=== PATIENT | male | born 1955 | race Caucasian/White ===

== ENCOUNTER 2017-05-07 16:15 | Inpatient (IN) | payer OTHER ==
[~2017-05-07] VITALS: Ht 160 cm; Wt 70.4 kg
[~2017-05-07 16:15] MED LIST: DEXAMETHASONE 4 MG/ML, 1ML ONE; GLYCOPYRROLATE 0.2MG/1ML, 5ML ONE; NEOSTIGMINE 1 MG/ML, 10ML ONE; ONDANSETRON 2MG/ML, 2ML ONE; PROPOFOL 10 MG/ML, 50ML ONE; ROCURONIUM 10MG/ML,5ML ONE
[2017-05-07] MEDS ORDERED: SODIUM CHLORIDE 0.9% 1,000ML IVBOLUS ONE (16:30)
[2017-05-07] MEDS ORDERED: SODIUM CHLORIDE FLUSH 10ML SYR IVF ONE (16:30)
[2017-05-07 16:53] LABS: HEMATOCRIT 49.7 % (39.2-51.8); WHITE BLOOD COUNT 8.3 x10^3/uL (3.4-10)
[2017-05-07] MEDS ORDERED: PLEASE ENTER ALLERGIES MC SCH ×2 (17:00)
[2017-05-07 17:06] LABS: BLOOD UREA NITROGEN 18 mg/dL (7-18)
[2017-05-07] MEDS ORDERED: LIDOCAINE GEL 2%, 5ML ONE (18:48)
[2017-05-07] MEDS ORDERED: OXYcodone 5 MG/5 ML ORAL.SOL UDC PO PRN (19:30)
[2017-05-07] MEDS ORDERED: FENTANYL PF 100 MCG/2ML ONE (19:59)
[2017-05-07] MEDS ORDERED: ONDANSETRON 2MG/ML, 2ML IVPush PRN (20:00)
[2017-05-07] MEDS ORDERED: ALBUTEROL SULFATE 2.5MG/0.5ML ONE (20:19)
[2017-05-07] MEDS ORDERED: LIDOCAINE-MPF 2% ,5ML ONE (20:21)
[2017-05-07] MEDS ORDERED: ALBUTEROL SULFATE 2.5 MG/3 ML NPPB PRN (20:30)
[2017-05-07] MEDS ORDERED: OXYcodone 5 MG/5 ML ORAL.SOL UDC ONE (20:34)
[2017-05-07 22:00] VITALS: BP 115/77
[2017-05-07 23:52] VITALS: BP 125/81
== END 2017-05-08 00:10 | disposition home or self-care (01) | DRG 206 ==
LOC: ED 17:52 → EDIP 17:53 → ED 18:01 → 4NOR 23:15
PROVIDERS: ADMIT Thoracic Surgery (Cardiothoracic Vascular Surgery); ATTEND Thoracic Surgery (Cardiothoracic Vascular Surgery)
PROC: 0BC38ZZ Extirpation of Matter from Right Main Bronchus, Via Natural or Artificial Opening Endoscopic (ICD-10-PCS; principal; 2017-05-07 19:00)
DX: T17.508A Unspecified foreign body in bronchus causing other injury, initial encounter (principal); I10 Essential (primary) hypertension
CPT/HCPCS: 36415; 71020; 74000; 80048; 82040; 85025; 93005; 94640; J1100; J2405; J2704; J2710; J3010; J3490; J7613